=== PATIENT | male | born 1960 | race Caucasian/White ===

== ENCOUNTER 2025-02-18 06:41 | Inpatient (IN) | payer MEDICAID, OTHER ==
[~2025-02-18] VITALS: Ht 182.9 cm; Wt 84.6 kg
--- NOTE | 2025-02-18 06:47 | ECG ---
[facility] Test Date: 2025-02-18 Test Time: 06:42:23 Pat Name: SHELLY SAAVEDRA Department: ED Room: 0289T Gender: M Saas Architect: [email or web address] : 1960 Requested By: EMERGENCY EMERGENCY Order Number: [id number] Reading MD: Dontae Rico Measurements Intervals [place] Rate: 80 P: 70 IA: 135 QRS: -80 QRSD: 87 T: 74 QT: 363 QTc: 419 Interpretive Statements Sinus rhythm Left anterior fascicular block Abnormal R-wave progression, late transition Nonspecific T abnrm, anterolateral leads Electronically Signed On 02-19-2025 17:04:22 PST by Dontae Rico Please click the below link to view image of tracing.
--- NOTE | 2025-02-18 06:57 | ED.PDOC ---
SOB-HPI HPI Comments This is a 64 year old male BIBA presenting to the ED with chief complaint of SOB. Patient reports that he has been experiencing worsening SOB with associated wheezing for the past 2 days. EMS relays patient was given a DuoNeb breathing treatment en route due to having an O2 saturation of 88%. EMS notes patient has history of COPD. Patient denies any chest pain, cough, dizziness, fever, or chills. Time Seen by MD: 06:55 Reviewed notes: Nurses Notes, Sales Rep Notes, Medications, Allergies Information Source: Patient, Emergency Med Personnel Mode of Arrival: EMS Severity: Moderate Timing: Days Duration: Since onset Context: At Rest PE Risk Factors: None History of: COPD Prehospital treatment: Breathing Tx Modifying Factors: Nothing Past Medical History PAST MEDICAL HISTORY: COPD Surgical History: Denies all surgeries Family History Family History: Reviewed,noncontributory to illness Social History Smoker: Cigarettes Alcohol: Denies ETOH Use Drugs: Marijuana Lives In: Homeless Constitutional: denies: chills, diaphoresis, fatigue, fever, malaise, sweats, weakness, others EENTM: denies: blurred vision, double vision, ear bleeding, ear discharge, ear drainage, ear pain, ear ringing, eye pain, eye redness, hearing loss, mouth pain, mouth swelling, nasal discharge, nose bleeding, nose congestion, nose pain, photophobia, tearing, throat pain, throat swelling, voice changes, others Respiratory: reports: shortness of breath, wheezing; denies: cough, hemoptysis, orthopnea, SOB at rest, SOB with excertion, stridor, others Cardiovascular: denies: chest pain, dizzy spells, diaphoresis, Dyspnea on exertion, edema, irregular heart beat, left arm pain, lightheadedness, palpitations, PND, syncope, others Gastrointestinal: denies: abdomen distended, abdominal pain, blood streaked bowels, constipated, diarrhea, dysphagia, difficulty swallowing, hematemesis, melena, nausea, poor appetite, poor fluid intake, rectal bleeding, rectal pain, vomiting, others Genitourinary: denies: burning, dysuria, flank pain, frequency, hematuria, incontinence, penile discharge, penile sore, pain, testicle pain, testicle swelling, urgency, others Neurological: denies: dizziness, fainting, headache, left sided numbness, left sided weakness, numbness, paresthesia, pre-existing deficit, right sided numbness, right sided weakness, seizure, speech problems, tingling, tremors, weakness, others Musculoskeletal: denies: back pain, gout, joint pain, joint swelling, muscle pain, muscle stiffness, neck pain, others Integumetry: denies: bruises, change in color, change in hair/nails, dryness, laceration, lesions, lumps, rash, wounds, others Allergic/Immunocompromised: denies: Difficulty Healing, Frequent Infections, Hives, Itching, others Hematologic/Lymphatic: denies: anemia, blood clots, easy bleeding, easy bruising, swollen glands, others Endocrine: denies: excessive hunger, excessive sweating, excessive thirst, excessive urination, flushing, intolerance to cold, intolerance to heat, unexplained weight gain, unexplained weight loss, others Psychiatric: denies: anxiety, bipolar disorder, depression, hopeless, panic disorder, schizophrenia, sleepless, suicidal, others All Other Systems: Reviewed and Negative Physical Exam General Appearance: Moderate Distress, Normal HEENT: Normal ENT Inspection, Pharynx Normal, TMs Normal Neck: Full Range of Motion, Non-Tender, Normal, Normal Inspection Respiratory: Chest Non-Tender, No Accessory Muscle Use, Other (Coarse breath sounds) Cardiovascular: No Edema, No JVD, No Murmur, No Gallop, Normal Peripheral Pulses, Regular Rate/Rhythm Breast Exam: Deferred Gastrointestinal: No Organomegaly, Non Tender, No Pulsatile Mass, Normal Bowel Sounds, Soft Genitalia: Deferred Pelvic: Deferred Rectal: Deferred Extremities: No calf tenderness, Normal capillary refill, Normal inspection, Normal range of motion, Non-tender, No pedal edema Musculoskeletal : Apperance: Normal Neurologic: Alert, hr internship II-XII nml as Tested, No Motor Deficits, Normal Affect, Normal Mood, No Sensory Deficits Cerebellar Function: NOT DONE Reflexes: NOT DONE Skin: Dry, Normal Color, Warm Peripheral Pulses: 3+ Radial (R), 3+ Radial (L) Lymphatic: No Adenopathy Was a procedure done? Was a procedure done?: No Differential Dx Differential Diagnosis: Anxiety, Asthma, Bronchitis X-Ray, Labs, Meds, VS Vital Signs Date Time Temp Pulse Resp B/P (MAP) Pulse Ox O2 Delivery O2 Flow Rate FiO2 02/18/25 06:57 98.2 79 20 137/82 98 98.2 02/18/25 06:45 80 Lab Test 02/18/25 07:24 Range/Units White Blood Count 12.0 H 4.4-10.8 10^3/uL Red Blood Count 5.08 4.5-5.90 10^6/uL Hemoglobin 15.7 13.5-17.5 g/dL Hematocrit 46.8 41.0-53.0 % Mean Corpuscular Volume 92.2 80.0-100.0 fL Mean Corpuscular Hemoglobin 31.0 28.0-32.0 pg Mean Corpuscular Hemoglobin Concent 33.6 32.0-36.0 g/dL Red Cell Distribution Width 13.6 11.8-14.3 % Platelet Count 300 140-450 10^3/uL Mean Platelet Volume 8.2 6.9-10.8 fL Neutrophils (%) (Auto) 76.1 37.0-80.0 % Lymphocytes (%) (Auto) 12.6 10.0-50.0 % Monocytes (%) (Auto) 8.3 0.0-12.0 % Eosinophils (%) (Auto) 2.3 0.0-7.0 % Basophils (%) (Auto) 0.7 0.0-2.0 % Neutrophils # (Auto) 9.1 H 1.6-8.6 10 ^3/uL Lymphocytes # (Auto) 1.5 0.4-5.4 10 ^3/uL Monocytes # (Auto) 1.0 0-1.3 10 ^3/uL Eosinophils # (Auto) 0.3 0-0.8 10 ^3/uL Basophils # (Auto) 0.1 0-0.2 10 ^3/uL Nucleated Red Blood Cells 0.0 % Sodium Level 143 136-145 mmol/L Potassium Level 3.8 3.5-5.1 mmol/L Chloride Level 107 98-107 mmol/L Carbon Dioxide Level 28 20-31 mmol/L Anion Gap 8 5-15 Blood Urea Nitrogen 9 9-23 mg/dL Creatinine 0.95 0.700-1.30 mg/dL Glomerular Filtration Rate Calc 89 >90 mL/min BUN/Creatinine Ratio 9.5 L 10.0-20.0 Serum Glucose 116 H 74-106 mg/dL Calcium Level 9.3 8.7-10.4 mg/dL Troponin I High Sensitivity 4 </=54 ng/L Current Medications Medications (Trade) Dose Ordered Sig/Rudi Route Start Time Stop Time Status Last Admin Methylprednisolone Sodium Succinate (Solu Medrol) 125 mg ONCE ONCE IV 02/18/25 07:15 02/18/25 07:16 DC 02/18/25 07:47 Ceftriaxone Sodium 50 ml @ 100 mls/hr ONCE ONCE IV 02/18/25 07:15 02/18/25 07:44 DC 02/18/25 07:47 Patient alert. Came in because of shortness a breath. Possible flu. Vitals stable. Establish intravenous access. Was given Rocephin. Was given azithromycin. Explained to the patient. Continue monitoring. [place] [id number] Ph: [phone] DIAGNOSTIC IMAGING Diagnostic Imaging Report : [id number] Signed PATIENT: SHELLY SAAVEDRA ACCT: [id number] UNIT: [id number] : 1960 LOC: ER ROOM / BED: / AGE / SEX: 64 / M ADM STATUS: REG ER SERVICE 3 ORDERING PHYSICIAN: BRO BATISTA MD PROCEDURE(s): CXRP - CHEST PORTABLE REASON: sob ORDER NUMBER(s): [id number], ACCESSION NUMBER(s): [id number] INDICATION: sob TECHNIQUE: Frontal view of the chest. COMPARISON: None FINDINGS: . The heart and mediastinal contours are grossly unremarkable. There is no evidence of pleural disease. The lungs are clear. The bony structures of the chest are intact without fracture. IMPRESSION: 1. No evidence of acute disease. ATED BY: WU COLLADO MD DICTATED DATE/TIME: 02/18/25745 SIGNED BY: WU COLLADO MD SIGNED DATE/TIME: 02/18/25745 CC: Time of 1ST Reevaluation: 07:55 Reevaluation 1ST: Unchanged Patient Education/Counseling: Diagnosis, Treatment Family Education/Counseling: No Family Present SEPSIS Sepsis Screen Physician Orders Chest Portable (02/18/25 07:04) Urinalysis (02/18/25 07:04) Azithromycin 500mg/250ml (Zithromax 500m (02/18/25 07:15) Rapid Influenza A&B (02/18/25 07:04) Covid19 Antigen Kelly (02/18/25 ) Vital Signs Date Time Temp Pulse Resp B/P (MAP) Pulse Ox O2 Delivery O2 Flow Rate FiO2 02/18/25 06:57 98.2 79 20 137/82 98 98.2 02/18/25 06:45 80 Laboratory Tests Test 02/18/25 07:24 White Blood Count 12.0 10^3/uL (4.4-10.8) H Medications Medications Dose Ordered Sig/Rudi Route Start Time Stop Time Status Last Admin Dose Admin Ceftriaxone Sodium 50 ml @ 100 mls/hr ONCE ONCE IV 02/18/25 07:15 02/18/25 07:44 DC 02/18/25 07:47 Methylprednisolone Sodium Succinate 125 mg ONCE ONCE IV 02/18/25 07:15 02/18/25 07:16 DC 02/18/25 07:47 Departure 1 Departure Time of Disposition: 07:07 Impression: Primary Impression: Pneumonitis Disposition: 09 ADMITTED INPATIENT Admit to: Med Surg Condition: Guarded Critical Care Note Critical Care Time?: No Stability Stability form required: No Heart Score Heart Score: Heart Score Response (Comments) Value History N/A 0 EKG N/A 0 Age N/A 0 Risk Factors N/A 0 Troponin N/A 0 Total 0 I personally scribed for BRO BATISTA MD ([email or web address]) on 02/18/25 at 06:57. Electronically submitted by Beau Horan ([email or web address]). I personally scribed for BRO BATISTA MD ([email or web address]) on 02/18/25 at 07:58. Electronically submitted by Beau Horan ([email or web address]). BRO BATISTA MD Feb 18, 2025 06:57
[2025-02-18 07:36] LABS: Chloride 107 mmol/L (98-107); Hematocrit 46.8 % (41.0-53.0); Hemoglobin 15.7 g/dL (13.5-17.5); Mean Corpuscular Hemoglobin 31.0 pg (28.0-32.0); Mean Corpuscular Volume 92.2 fL (80.0-100.0); Nucleated Red Blood Cells % 0.0 %; Potassium 3.8 mmol/L (3.5-5.1); Sodium 143 mmol/L (136-145)
[2025-02-18 07:37] LABS: Anion Gap 8 (5-15); Calcium 9.3 mg/dL (8.7-10.4); Carbon Dioxide 28 mmol/L (20-31)
[2025-02-18 07:42] LABS: BUN/Creatinine Ratio 9.5 (10.0-20.0); Blood Urea Nitrogen 9 mg/dL (9-23)
[2025-02-18 07:46] LABS: Glucose 116 mg/dL (74-106)
[2025-02-18] MEDS: methylPREDNISolone SOD SUCC 125 MG/2 ML VL IV ONE (07:47)
--- NOTE | 2025-02-18 07:48 | DVH ---
INDICATION: sob TECHNIQUE: Frontal view of the chest. COMPARISON: None FINDINGS: . The heart and mediastinal contours are grossly unremarkable. There is no evidence of pleural disease. The lungs are clear. The bony structures of the chest are intact without fracture. IMPRESSION: 1. No evidence of acute disease.
[2025-02-18 08:16] VITALS: PULSE 76; RESP 20; O2SAT 92
[2025-02-18] MEDS: AZITHROMYCIN 500MG/250ML 250 ML IV ONE (08:24)
[2025-02-18 09:41] LABS: Urine Protein, UAD TRACE (Negative)
[2025-02-18 09:49] LABS: Urine Budding Yeast None seen /hpf (None Seen)
[2025-02-18 10:02] LABS: COVID19 ANTIGEN SOFIA FIA NEGATIVE (NEGATIVE)
[2025-02-18] MEDS ORDERED: ONDANSETRON HCL 4 MG/2 ML VIAL IV PRN (10:15)
[2025-02-18] MEDS ORDERED: NITROGLYCERIN 0.4 MG SL TAB SL PRN (10:15)
[2025-02-18] MEDS ORDERED: DOCUSATE SOD 100 MG CAP PO PRN (10:15)
[2025-02-18] MEDS ORDERED: ACETAMINOPHEN 325 MG TAB PO PRN (10:15)
[2025-02-18] MEDS ORDERED: HYDROcodone-ACET 5/325MG TAB PO PRN (10:15)
[2025-02-18] MEDS ORDERED: MORPHINE SULFATE INJ 2 MG/ml SYRG IV PRN (10:15)
--- NOTE | 2025-02-18 10:15 | DVHHP2 ---
History of Present Illness Reason for Visit: COPD with acute exacerbation History of Present Illness The patient is a 64-year-old male homeless with past medical history of COPD who presented to [facility] ED with complaint of shortness of breaths. Patient reports that he has been experiencing difficulty breathing associated with wheezing for the past 2 days. Patient was seen and evaluated in the ED, laboratory data shows WBC 12.0, platelets 300, sodium 143, potassium 3.8, BUN 9, creatinine 0.95, GFR 89, glucose 116, calcium 9.3, troponin 4, blood pressure 126/80, heart rate 83, temperature 98.0 F, O2 saturation 95% on oxygen. Chest x-ray show no evidence of acute disease. Patient was given breathing treatment, please see medication orders section in the computer. On my assessment, patient denied chest pain, no headache, dizziness, diaphoresis, currently on oxygen, no diarrhea, nausea, vomiting, fever, no chills. Patient was admitted for further evaluation and medical management. Past Medical History COPD Past Surgical History Denies all surgeries Family History Reviewed, noncontributory to the management of this case. Past Social History The patient is homeless, smokes cigarettes, uses marijuana, denies alcohol use. Review of Systems Constitutional: Yes: Weakness; No: Fever, Chills, Sweats, Malaise, Other Eyes: No: Pain, Vision change, Conjunctivae inflammation, Eyelid inflammation, Other, Redness ENT: No: Ear pain, Ear discharge, Nose pain, Nose discharge, Nose congestion, Mouth pain, Mouth swelling, Throat pain, Throat swelling, Other Respiratory: Cough, Shortness of breath, Wheezing, Other (SOB at rest); No: Dry, SOB with excertion, Hemoptysis, Pleuritic Pain, Sputum, Wheezing Cardiovascular: No: Chest Pain, Palpitations, Orthopnea, Paroxysmal Noc. Dyspnea, Edema, Lt Headedness, Other Gastrointestinal: No: Nausea, Vomiting, Abdominal Pain, Diarrhea, Constipation, Melena, Hematochezia, Other Genitourinary: No Dysuria, No Frequency, No Incontinence, No Hematuria, No Retention, No Other Musculoskeletal: No: other, neck pain, shoulder pain, arm pain, back pain, hand pain, leg pain, foot pain Skin: No: Rash, Lesions, Jaundice, Bruising, Other Neurological: No: Weakness, Numbness, Incoordination, Change in speech, Confusion, Seizures, Other Allergies: Coded Allergies: No Known Drug Allergy (Unverified Allergy, Unknown, 02/18/25) Exam Vital Signs Vital Signs Date Time Temp Pulse Resp B/P (MAP) Pulse Ox O2 Delivery O2 Flow Rate FiO2 02/18/25 10:00 83 18 126/80 (95) 85 02/18/25 08:16 Nasal Cannula* 4 36 02/18/25 08:00 98.0 98.0 General Appearance: Alert, Oriented X3, Cooperative, No acute distress HEENT: Atraumatic, PERRLA, EOMI, Mucous membr. moist/pink Respiratory: Normal air movement, Other (Diminished breath sounds) Cardiovascular: Regular rate, Normal S1, Normal S2, No murmurs Abdominal: Normal bowel sounds, Soft, No tenderness, No hepatospenomegaly, No masses Extremities: No clubbing, No edema, Normal pulses, No tenderness/swelling Skin: No rashes, No significant lesion Neuro: Normal speech, Normal tone, Sensation intact, Cranial nerves 3-12 NL, Reflexes 2+, Other (Generalized weakness) Psych/Mental Status: Mental status NL, Mood NL Labs/Xrays Labs Test 02/18/25 08:30 02/18/25 07:24 Range/Units Urine Color Yellow Yellow Urine Clarity Clear Clear Urine pH 5.5 5.0-9.0 Urine Specific [place] 1.029 1.001-1.035 Urine Protein Trace H Negative Urine Ketones Negative Negative Urine Blood Negative Negative /uL Urine Nitrite Negative Negative Urine Bilirubin Negative Negative Urine Urobilinogen Normal Negative mg/dL Urine Leukocyte Esterase Trace Negative /uL Urine RBC 11 0 - 3 /hpf Urine Microscopic WBC 18 H 0-3 /HPF Urine Squamous Epithelial Cells Few <5 /hpf Urine Calcium Oxalate Crystals Many None Seen Urine Bacteria None seen None Seen /hpf Urine Hyaline Casts 0 0 - 2 /lpf Urine Mucus Few None Seen Urine Yeast (Budding) None seen None Seen /hpf Urine Glucose Normal Normal mg/dL Influenza Type A Antigen Negative Negative Influenza Type B Antigen Negative Negative SARS-CoV-2 Antigen (Rapid) Negative NEGATIVE White Blood Count 12.0 H 4.4-10.8 10^3/uL Red Blood Count 5.08 4.5-5.90 10^6/uL Hemoglobin 15.7 13.5-17.5 g/dL Hematocrit 46.8 41.0-53.0 % Mean Corpuscular Volume 92.2 80.0-100.0 fL Mean Corpuscular Hemoglobin 31.0 28.0-32.0 pg Mean Corpuscular Hemoglobin Concent 33.6 32.0-36.0 g/dL Red Cell Distribution Width 13.6 11.8-14.3 % Platelet Count 300 140-450 10^3/uL Mean Platelet Volume 8.2 6.9-10.8 fL Neutrophils (%) (Auto) 76.1 37.0-80.0 % Lymphocytes (%) (Auto) 12.6 10.0-50.0 % Monocytes (%) (Auto) 8.3 0.0-12.0 % Eosinophils (%) (Auto) 2.3 0.0-7.0 % Basophils (%) (Auto) 0.7 0.0-2.0 % Neutrophils # (Auto) 9.1 H 1.6-8.6 10 ^3/uL Lymphocytes # (Auto) 1.5 0.4-5.4 10 ^3/uL Monocytes # (Auto) 1.0 0-1.3 10 ^3/uL Eosinophils # (Auto) 0.3 0-0.8 10 ^3/uL Basophils # (Auto) 0.1 0-0.2 10 ^3/uL Nucleated Red Blood Cells 0.0 % Sodium Level 143 136-145 mmol/L Potassium Level 3.8 3.5-5.1 mmol/L Chloride Level 107 98-107 mmol/L Carbon Dioxide Level 28 20-31 mmol/L Anion Gap 8 5-15 Blood Urea Nitrogen 9 9-23 mg/dL Creatinine 0.95 0.700-1.30 mg/dL Glomerular Filtration Rate Calc 89 >90 mL/min BUN/Creatinine Ratio 9.5 L 10.0-20.0 Serum Glucose 116 H 74-106 mg/dL Calcium Level 9.3 8.7-10.4 mg/dL Troponin I High Sensitivity 4 </=54 ng/L PATIENT: SHELLY SAAVEDRA ACCT: [id number] UNIT: [id number] : 1960 LOC: ER ROOM / BED: / AGE / SEX: 64 / M ADM STATUS: REG ER SERVICE 0704 ORDERING PHYSICIAN: BRO BATISTA MD PROCEDURE(s): CXRP - CHEST PORTABLE REASON: sob ORDER NUMBER(s): [id number], ACCESSION NUMBER(s): [id number] INDICATION: sob TECHNIQUE: Frontal view of the chest. COMPARISON: None FINDINGS: The heart and mediastinal contours are grossly unremarkable. There is no evidence of pleural disease. The lungs are clear. The bony structures of the chest are intact without fracture. IMPRESSION: 1. No evidence of acute disease. SEPSIS Sepsis Screen Date sepsis recognized/suspect: Feb 18, 2025 Time Sepsis recognized/suspect: 818 Recent Procedure: No On Antibiotic Therapy: No Respiratory Rate >20: No Heart Rate >90: No Temp<36 C (96.8 F) or >38.3 C: No SBP <90 or MAP <65 mmHG: No New Acute Mental Status Change: No Is the patient on CPAP, BIPAP,: No Physician Orders Chest Portable (02/18/25 07:04) Methylprednisolone Sod Succ (Solu Medrol (02/18/25 22:00) Famotidine Injection (Pepcid Injection) (02/19/25 10:00) Ceftriaxone Ivpb Rocephin (02/19/25 09:00) Admit (02/18/25 10:10) Allergies (02/18/25 10:10) Code Status (02/18/25 10:10) Sodium Chloride Lock (Saline Lock Ns) (02/18/25 14:00) Oxygen Per Hour (02/18/25 10:10) Hydrocodone-Acet 5/325mg Tab ([place] 5/32 (02/18/25 10:15) Ondansetron Hcl (Zofran) (02/18/25 10:15) Docusate Sodium Capsule (Colace Capsule) (02/18/25 10:15) Complete Blood Count (02/19/25 04:00) Comprehensive Metabolic Panel (02/19/25 04:00) Cardiac Diet-2gna,Lofat,Lochol (02/18/25 Lunch) Condition: Serious (02/18/25 10:10) Acetaminophen Tablet (Tylenol Tablet) (02/18/25 10:15) Bedrest With Bathroom Privileg (02/18/25 10:10) Sequential Compression Device (02/18/25 ) Nitroglycerin Sublingual (Ntrostat Subli (02/18/25 10:15) Morphine Sulfate Injection (02/18/25 10:15) Stat Ekg For Chest Pain (02/18/25 10:10) Notify Of Changes From Base (02/18/25 10:10) Finance Associate For 24 Hours (02/18/25 10:10) Emergency Dysrhythmia Protocol (02/18/25 10:10) Rhythm Strips Once Every Shift (02/18/25 10:10) Oxygen By Nasal Cannula (02/18/25 10:10) Vital Signs Date Time Temp Pulse Resp B/P (MAP) Pulse Ox O2 Delivery O2 Flow Rate FiO2 02/18/25 10:00 83 18 126/80 (95) 85 02/18/25 08:16 76 20 92 Nasal Cannula* 4 36 02/18/25 08:00 98.0 72 19 126/81 (96) 95 98.0 02/18/25 08:00 73 02/18/25 07:04 98.6 74 20 132/86 (101) 84 98.6 02/18/25 06:57 98.2 79 20 137/82 98 98.2 02/18/25 06:45 80 Laboratory Tests Test 02/18/25 07:24 White Blood Count 12.0 10^3/uL (4.4-10.8) H Medications Medications Dose Ordered Sig/Rudi Route Start Time Stop Time Status Last Admin Dose Admin Azithromycin 250 ml @ 125 mls/hr ONCE ONCE IV 02/18/25 07:15 02/18/25 09:14 DC 02/18/25 08:24 125 MLS/HR Ceftriaxone Sodium 50 ml @ 100 mls/hr ONCE ONCE IV 02/18/25 07:15 02/18/25 07:44 DC 02/18/25 07:47 100 MLS/HR Methylprednisolone Sodium Succinate 125 mg ONCE ONCE IV 02/18/25 07:15 02/18/25 07:16 DC 02/18/25 07:47 125 MG Assessment/Plan Assessment/Plan COPD with acute exacerbation Leukocytosis, unspecified Generalized weakness Plan 1. Admit to telemetry unit 2. Breathing treatment 3. Pain control management 4. IV antibiotic management 5. Management of fluids and electrolytes 6. Consultation for hospitalist/social service 7. Diagnostic test chest x-ray 8. DVT prophylaxis-on SCDs 9. Repeat labs CBC, CMP in a.m. 10. Home medication reviewed and reconciled 11. Continue with current medical management 12. Treatment plan discussed with patient and RN. Patient verbalized understanding. Plan discussed with: Patient, Other (RN) My Orders Orders - RAS STARK DNP Procedure Category Date Status Time Methylprednisolone PHA 02/18/25 Transmitted Sod Succ (Solu Medrol 22:00 Famotidine Injection PHA 02/19/25 Transmitted (Pepcid Injection) 10:00 Ceftriaxone Ivpb PHA 02/19/25 Transmitted Rocephin 09:00 Admit ADMIT 02/18/25 Transmitted 10:10 Allergies CRISTHIAN 02/18/25 Transmitted 10:10 Code Status CODE 02/18/25 Transmitted 10:10 Sodium Chloride Lock PHA 02/18/25 Transmitted (Saline Lock Ns) 14:00 Oxygen Per Hour RT 02/18/25 Transmitted 10:10 Hydrocodone-Acet PHA 02/18/25 Transmitted 5/325mg Tab ([place] 10:15 Ondansetron Hcl PHA 02/18/25 Transmitted (Zofran) 10:15 Docusate Sodium PHA 02/18/25 Transmitted Capsule (Colace 10:15 Complete Blood Count LAB 02/19/25 Verified 04:00 Comprehensive LAB 02/19/25 Verified Metabolic Panel 04:00 Cardiac DIET 02/18/25 Transmitted Diet-2gna,Lofat,Lochol Lunch Condition: Serious CRISTHIAN 02/18/25 Transmitted 10:10 Acetaminophen Tablet PHA 02/18/25 Transmitted (Tylenol Tablet) 10:15 Bedrest With Bathroom CRISTHIAN 02/18/25 Transmitted Privileg 10:10 Sequential [facility] 02/18/25 Transmitted Compression Device Nitroglycerin [facility] 02/18/25 Transmitted Sublingual (Ntrostat 10:15 Morphine Sulfate PHA 02/18/25 Transmitted Injection 10:15 Stat Ekg For Chest [facility] 02/18/25 Transmitted Pain 10:10 Notify Md Of Changes [facility] 02/18/25 Transmitted From Base 10:10 Finance Associate For [facility] 02/18/25 Transmitted 24 Hours 10:10 Emergency Dysrhythmia [facility] 02/18/25 Transmitted Protocol 10:10 Rhythm Strips Once [facility] 02/18/25 Transmitted Every Shift 10:10 Oxygen By Nasal RT 02/18/25 Transmitted Cannula 10:10 Problem List: (1) COPD with acute exacerbation (2) Leukocytosis, unspecified (3) Generalized weakness Date of Service: Feb 18, 2025 Billing Provider: RAS STARK DNP Common Visit Codes: [id number] INP/OBS CARE (HIGH) RAS STARK DNP Feb 18, 2025 10:15
[2025-02-18 11:11] VITALS: O2SAT 94
[2025-02-18 11:56] VITALS: BP 126/80; PULSE 83; RESP 18; TEMP 98; O2SAT 94
[2025-02-18 13:31] VITALS: PULSE 77; PULSE 87; RESP 18; O2SAT 90; O2SAT 94
[2025-02-18] MEDS: ALBUTEROL SULF 2.5 MG/0.5ML(0.5%) NEB SOLN NEB PRN (13:31)
[2025-02-18] MEDS: IPRATROPIUM BROM 0.5 MG/2.5ML INH SOL NEB PRN (13:31)
[2025-02-18] MEDS: SODIUM CHLOR 0.9% PF (SALINE LOCK) 10ML VIAL/SYR IV SCH (14:08)
[2025-02-18] MEDS: methylPREDNISolone SOD SUCC 40 MG/ML VL IV SCH (14:30)
[2025-02-18 21:00] VITALS: BP 141/86; PULSE 96; RESP 19; TEMP 98.6; O2SAT 90
[2025-02-18] MEDS ORDERED: methylPREDNISolone SOD SUCC 40 MG/ML VL IV SCH (22:00)
[2025-02-18 22:04] VITALS: BP 141/86; PULSE 92; PULSE 96; RESP 18; RESP 19; TEMP 98.6; O2SAT 90; O2SAT 93
[2025-02-18] MEDS: FAMOTIDINE (10MG/ML) 2ML VL IV SCH (22:30)
[2025-02-19] VITALS (12 sets, daily range): BP systolic 117–140; BP diastolic 72–85; PULSE 66–93; RESP 18–20; TEMP 98–98.5; O2SAT 90–97
[2025-02-19 05:43] LABS: Hematocrit 49.5 % (41.0-53.0); Hemoglobin 16.4 g/dL (13.5-17.5); Mean Corpuscular Hemoglobin 30.7 pg (28.0-32.0); Mean Corpuscular Volume 92.8 fL (80.0-100.0); Nucleated Red Blood Cells % 0.0 %
[2025-02-19 06:01] LABS: Alanine Aminotransferase 12 U/L (7-40); Albumin 4.2 g/dL (3.2-4.8); Alkaline Phosphatase 90 U/L (46-116); Anion Gap 8 (5-15); BUN/Creatinine Ratio 13.9 (10.0-20.0); Blood Urea Nitrogen 14 mg/dL (9-23); Calcium 9.7 mg/dL (8.7-10.4); Carbon Dioxide 31 mmol/L (20-31); Chloride 103 mmol/L (98-107); Potassium 4.9 mmol/L (3.5-5.1); Sodium 142 mmol/L (136-145); Total Protein 7.3 g/dL (5.7-8.2)
[2025-02-19 06:03] LABS: Bilirubin, Total 0.3 mg/dL (0.2-1.0); Glucose 130 mg/dL (74-106)
[2025-02-19] MEDS ORDERED: FAMOTIDINE (10MG/ML) 2ML VL IV SCH (10:00)
[2025-02-19] MEDS: AZITHROMYCIN 500MG/250ML 250 ML IV SCH (14:11)
[2025-02-19] MEDS: ALBUTEROL SULF 2.5 MG/0.5ML(0.5%) NEB SOLN NEB SCH (14:50)
[2025-02-19] MEDS: IPRATROPIUM BROM 0.5 MG/2.5ML INH SOL NEB SCH (14:50)
--- NOTE | 2025-02-19 17:39 | DVHPN2 ---
Reviewed: H&P Changes from previous H/P or p: No Changes General: Per HPI Eyes: No Pain, No Vision change, No Conjunctivae inflammation, No Eyelid inflammation, No Other, No Redness ENT: No Ear pain, No Ear discharge, No Nose pain, No Nose discharge, No Nose congestion, No Mouth pain, No Mouth swelling, No Throat pain, No Throat swelling, No Other Cardiovascular: No Chest Pain, No Palpitations, No Orthopnea, No Paroxysmal Noc. Dyspnea, No Edema, No Lt Headedness, No Other Respiratory: Cough; No Dry; Shortness of breath; No SOB with excertion; W heezing; No Hemoptysis, No Pleuritic Pain, No Sputum; Other (SOB at rest) Gastrointestinal: No Nausea, No Vomiting, No Abdominal Pain, No Diarrhea, No Constipation, No Melena, No Hematochezia, No Other Genitourinary: No Dysuria, No Frequency, No Incontinence, No Hematuria, No Retention, No Other Musculoskeletal: No other, No neck pain, No shoulder pain, No arm pain, No back pain, No hand pain, No leg pain, No foot pain Skin: No Rash, No Lesions, No Jaundice, No Bruising, No Other Objective Vitals Vital Signs Date Time Temp Pulse Resp B/P (MAP) Pulse Ox O2 Delivery O2 Flow Rate FiO2 02/19/25 17:00 98.5 72 20 128/83 (98) 93 98.5 02/19/25 08:00 Nasal Cannula* 3 32 Intake/Output Intake and Output 02/19/25 07:00 Intake Total 550 ml Balance 550 ml Intake Oral 250 ml IV Total 300 ml Exam GEN: Healthy appearing, well-developed, NAD. HEENT: NC/AT; MMM. CV: RRR, no m/r/g. LUNGS: Diffuse wheezing in all lung serrano, distant breath sounds. ABD: Soft, NT/ND, NBS, no masses or organomegaly. EXT: skin Warm, well perfused. no rashes. No clubbing, cyanosis, or edema. NEURO: Ambulating with no limitations. No focal deficits. Medications Current Medications Medications Dose Ordered Sig/Rudi Route Start Time Stop Time Status Last Admin Dose Admin Ceftriaxone Sodium 50 ml @ 100 mls/hr DAILY@09 IV 02/19/25 09:00 02/19/25 09:23 100 MLS/HR Sodium Chloride 10 ml Q8HR IV 02/18/25 14:00 02/19/25 14:10 10 ML Acetaminophen/ Hydrocodone Bitart 1 tab Q4HP PRN PO 02/18/25 10:15 Ondansetron HCl 4 mg Q4HP PRN IV 02/18/25 10:15 Docusate Sodium 100 mg BIDPRN PRN PO 02/18/25 10:15 Acetaminophen 650 mg Q6HP PRN PO 02/18/25 10:15 Nitroglycerin 0.4 mg Q5MINP PRN SL 02/18/25 10:15 Morphine Sulfate 2 mg Q30M PRN IV 02/18/25 10:15 Methylprednisolone Sodium Succinate 40 mg Q8HR IV 02/18/25 14:00 02/19/25 14:10 40 MG Famotidine 20 mg Q12HR IV 02/18/25 22:00 02/19/25 09:23 20 MG Albuterol 2.5 mg Q4H NEB 02/19/25 14:00 02/19/25 14:50 2.5 MG Ipratropium [place] 0.5 mg Q4H NEB 02/19/25 14:00 02/19/25 14:50 0.5 MG Azithromycin 250 ml @ 125 mls/hr DAILY IV 02/19/25 13:15 02/19/25 14:11 125 MLS/HR Laboratory Results Laboratory Tests 02/19/25 04:53 Chemistry Test 02/19/25 04:53 Albumin 4.2 g/dL (3.2-4.8) Calcium Level 9.7 mg/dL (8.7-10.4) Total Protein 7.3 g/dL (5.7-8.2) LFT Test 02/19/25 04:53 Alanine Aminotransferase (ALT) 12 U/L (7-40) Alkaline Phosphatase 90 U/L (46-116) Aspartate Amino Transferase (AST) 16 U/L (13-40) Total Bilirubin 0.3 mg/dL (0.2-1.0) Urinalysis Test 02/18/25 08:30 Urine Color Yellow (Yellow) Urine Clarity Clear (Clear) Urine pH 5.5 (5.0-9.0) Urine Specific [place] 1.029 (1.001-1.035) Urine Protein Trace (Negative) H Urine Ketones Negative (Negative) Urine Blood Negative /uL (Negative) Urine Nitrite Negative (Negative) Urine Bilirubin Negative (Negative) Urine Urobilinogen Normal mg/dL (Negative) Urine Leukocyte Esterase Trace /uL (Negative) Urine RBC 11 /hpf (0 - 3) Urine Microscopic WBC 18 /HPF (0-3) H Urine Squamous Epithelial Cells Few /hpf (<5) Urine Calcium Oxalate Crystals Many (None Seen) Urine Bacteria None seen /hpf (None Seen) Urine Hyaline Casts 0 /lpf (0 - 2) Urine Mucus Few (None Seen) Urine Yeast (Budding) None seen /hpf (None Seen) Urine Glucose Normal mg/dL (Normal) Labs and/or images reviewed: Labs reviewed by me, Image(s) reviewed by me Assessment/Plan Assessment/Plan 64-year-old male homeless with past medical history of COPD who presented to [facility] ED with complaint of shortness of breaths. Patient reports that he has been experiencing difficulty breathing associated with wheezing for the past 2 days. 02/19: Patient admitted yesterday, appears to be COPD exacerbation and/or with a ammonia. Patient continues to have cough. We will schedule nebulizers q.4, reassess tomorrow to deescalate to q.6 if possible. Continue Solu-Medrol 40 t.i.d.. Patient is still wheezing. We will continue antibiotics, continue ceftriaxone, and azithromycin IV. Continue other home medications. Keep on tele. Full code. Diagnosis: Acute on chronic hypoxic respiratory failure Acute exacerbation of chronic COPD, with pneumonitis Possible pneumonia, community-acquired, Gram-negative/Gram-positive possible Tobacco abuse, current, with dependence Leukocytosis Plan: Ipratropium, albuterol nebulizer q.4h scheduled Ceftriaxone IV 1 g daily, Azithromycin 500 mg daily IV Continue home medications Patient declining nicotine patch Solu-Medrol 40 IV t.i.d. Famotidine Pepcid injection 20 IV b.i.d. Tele Full code Plan discussed with: Patient My Orders Orders - CLEOPATRA CONKLIN MD Procedure Category Date Status Time Albuterol Medneb PHA 02/19/25 In Process (Ventolin Medneb) 14:00 Ipratropium Medneb PHA 02/19/25 In Process (Atrovent Medneb) 14:00 Azithromycin PHA 02/19/25 In Process 500mg/250ml 13:15 Date of Service: Feb 19, 2025 Billing Provider: CLEOPATRA CONKLIN MD Common Visit Codes: [id number] INP/OBS CARE(HIGH) CLEOPATRA CONKLIN MD Feb 19, 2025 17:38
[2025-02-20] VITALS (19 sets, daily range): BP systolic 99–129; BP diastolic 64–89; PULSE 68–97; RESP 16–20; TEMP 98–98.7; O2SAT 88–100
[2025-02-21] VITALS (17 sets, daily range): BP systolic 80–136; BP diastolic 60–87; PULSE 64–86; RESP 16–20; TEMP 97.9–98.6; O2SAT 90–99
--- NOTE | 2025-02-21 11:07 | DVHPN2 ---
Reviewed: Care Plan, H&P Changes from previous H/P or p: No Changes General: Per HPI Eyes: No Pain, No Vision change, No Conjunctivae inflammation, No Eyelid inflammation, No Other, No Redness ENT: No Ear pain, No Ear discharge, No Nose pain, No Nose discharge, No Nose congestion, No Mouth pain, No Mouth swelling, No Throat pain, No Throat swelling, No Other Cardiovascular: No Chest Pain, No Palpitations, No Orthopnea, No Paroxysmal Noc. Dyspnea, No Edema, No Lt Headedness, No Other Respiratory: Cough; No Dry; Shortness of breath; No SOB with excertion; W heezing; No Hemoptysis, No Pleuritic Pain, No Sputum; Other (SOB at rest) Gastrointestinal: No Nausea, No Vomiting, No Abdominal Pain, No Diarrhea, No Constipation, No Melena, No Hematochezia, No Other Genitourinary: No Dysuria, No Frequency, No Incontinence, No Hematuria, No Retention, No Other Musculoskeletal: No other, No neck pain, No shoulder pain, No arm pain, No back pain, No hand pain, No leg pain, No foot pain Skin: No Rash, No Lesions, No Jaundice, No Bruising, No Other Objective Vitals Vital Signs Date Time Temp Pulse Resp B/P (MAP) Pulse Ox O2 Delivery O2 Flow Rate FiO2 02/21/25 10:10 18 122/64 94 0.0 21 02/21/25 09:09 Room Air* 02/21/25 09:00 98.6 70 98.6 Intake/Output Intake and Output 02/21/25 07:00 Intake Total 2095 ml Output Total 1200 ml Balance 895 ml Intake Oral 1795 ml IV Total 300 ml Output Urine Total 1200 ml Medications Current Medications Medications Dose Ordered Sig/Rudi Route Start Time Stop Time Status Last Admin Dose Admin Ceftriaxone Sodium 50 ml @ 100 mls/hr DAILY@09 IV 02/19/25 09:00 02/21/25 09:35 100 MLS/HR Sodium Chloride 10 ml Q8HR IV 02/18/25 14:00 02/21/25 05:17 10 ML Acetaminophen/ Hydrocodone Bitart 1 tab Q4HP PRN PO 02/18/25 10:15 Ondansetron HCl 4 mg Q4HP PRN IV 02/18/25 10:15 Docusate Sodium 100 mg BIDPRN PRN PO 02/18/25 10:15 Acetaminophen 650 mg Q6HP PRN PO 02/18/25 10:15 Nitroglycerin 0.4 mg Q5MINP PRN SL 02/18/25 10:15 Morphine Sulfate 2 mg Q30M PRN IV 02/18/25 10:15 Methylprednisolone Sodium Succinate 40 mg Q8HR IV 02/18/25 14:00 02/21/25 05:17 40 MG Famotidine 20 mg Q12HR IV 02/18/25 22:00 02/21/25 09:35 20 MG Albuterol 2.5 mg Q4H NEB 02/19/25 14:00 02/21/25 02:25 2.5 MG Ipratropium [place] 0.5 mg Q4H NEB 02/19/25 14:00 02/21/25 02:25 0.5 MG Azithromycin 250 ml @ 125 mls/hr DAILY IV 02/19/25 13:15 02/21/25 09:35 125 MLS/HR Laboratory Results Laboratory Tests 02/19/25 04:53 Urinalysis Test 02/18/25 08:30 Urine Color Yellow (Yellow) Urine Clarity Clear (Clear) Urine pH 5.5 (5.0-9.0) Urine Specific [place] 1.029 (1.001-1.035) Urine Protein Trace (Negative) H Urine Ketones Negative (Negative) Urine Blood Negative /uL (Negative) Urine Nitrite Negative (Negative) Urine Bilirubin Negative (Negative) Urine Urobilinogen Normal mg/dL (Negative) Urine Leukocyte Esterase Trace /uL (Negative) Urine RBC 11 /hpf (0 - 3) Urine Microscopic WBC 18 /HPF (0-3) H Urine Squamous Epithelial Cells Few /hpf (<5) Urine Calcium Oxalate Crystals Many (None Seen) Urine Bacteria None seen /hpf (None Seen) Urine Hyaline Casts 0 /lpf (0 - 2) Urine Mucus Few (None Seen) Urine Yeast (Budding) None seen /hpf (None Seen) Urine Glucose Normal mg/dL (Normal) Labs and/or images reviewed: Labs reviewed by me, Image(s) reviewed by me Assessment/Plan Assessment/Plan 64-year-old male homeless with past medical history of COPD who presented to [facility] ED with complaint of shortness of breaths. Patient reports that he has been experiencing difficulty breathing associated with wheezing for the past 2 days. 12/4: Patient admitted yesterday, appears to be COPD exacerbation and/or with a ammonia. Patient continues to have cough. We will schedule nebulizers q.4, reassess tomorrow to deescalate to q.6 if possible. Continue Solu-Medrol 40 t.i.d.. Patient is still wheezing. We will continue antibiotics, continue ceftriaxone, and azithromycin IV. Continue other home medications. Keep on tele. Full code. Diagnosis: Acute on chronic hypoxic respiratory failure Acute exacerbation of chronic COPD, with pneumonitis Possible pneumonia, community-acquired, Gram-negative/Gram-positive possible Tobacco abuse, current, with dependence Leukocytosis Plan: Ipratropium, albuterol nebulizer q.4h scheduled Ceftriaxone IV 1 g daily, Azithromycin 500 mg daily IV Continue home medications Patient declining nicotine patch Solu-Medrol 40 IV t.i.d. Famotidine Pepcid injection 20 IV b.i.d. Tele Full code Plan discussed with: Patient Date of Service: Feb 21, 2025 Billing Provider: ANIA BARNEY DO Common Visit Codes: [id number] INP/OBS CARE(HIGH) ANIA BARNEY DO Feb 21, 2025 11:07
[2025-02-22] VITALS (8 sets, daily range): BP systolic 121–133; BP diastolic 78–81; PULSE 61–70; RESP 16–18; TEMP 97.3–98; O2SAT 90–98
--- NOTE | 2025-02-22 09:54 | DVHPN2 ---
Reviewed: Care Plan, H&P Changes from previous H/P or p: No Changes General: Per HPI Eyes: No Pain, No Vision change, No Conjunctivae inflammation, No Eyelid inflammation, No Other, No Redness ENT: No Ear pain, No Ear discharge, No Nose pain, No Nose discharge, No Nose congestion, No Mouth pain, No Mouth swelling, No Throat pain, No Throat swelling, No Other Cardiovascular: No Chest Pain, No Palpitations, No Orthopnea, No Paroxysmal Noc. Dyspnea, No Edema, No Lt Headedness, No Other Respiratory: Cough; No Dry; Shortness of breath; No SOB with excertion; W heezing; No Hemoptysis, No Pleuritic Pain, No Sputum; Other (SOB at rest) Gastrointestinal: No Nausea, No Vomiting, No Abdominal Pain, No Diarrhea, No Constipation, No Melena, No Hematochezia, No Other Genitourinary: No Dysuria, No Frequency, No Incontinence, No Hematuria, No Retention, No Other Musculoskeletal: No other, No neck pain, No shoulder pain, No arm pain, No back pain, No hand pain, No leg pain, No foot pain Skin: No Rash, No Lesions, No Jaundice, No Bruising, No Other Objective Vitals Vital Signs Date Time Temp Pulse Resp B/P (MAP) Pulse Ox O2 Delivery O2 Flow Rate FiO2 02/22/25 09:25 61 16 98 02/22/25 09:19 Room Air 0.0 02/22/25 09:19 21 02/22/25 01:00 97.3 121/81 (94) 97.3 Intake/Output Intake and Output 02/22/25 07:00 Intake Total 1400 ml Output Total 1800 ml Balance -400 ml Intake Oral 1400 ml Output Urine Total 1800 ml Medications Current Medications Medications Dose Ordered Sig/Rudi Route Start Time Stop Time Status Last Admin Dose Admin Ceftriaxone Sodium 50 ml @ 100 mls/hr DAILY@09 IV 02/19/25 09:00 02/22/25 09:45 100 MLS/HR Sodium Chloride 10 ml Q8HR IV 02/18/25 14:00 02/22/25 06:16 10 ML Acetaminophen/ Hydrocodone Bitart 1 tab Q4HP PRN PO 02/18/25 10:15 Ondansetron HCl 4 mg Q4HP PRN IV 02/18/25 10:15 Docusate Sodium 100 mg BIDPRN PRN PO 02/18/25 10:15 Acetaminophen 650 mg Q6HP PRN PO 02/18/25 10:15 Nitroglycerin 0.4 mg Q5MINP PRN SL 02/18/25 10:15 Morphine Sulfate 2 mg Q30M PRN IV 02/18/25 10:15 Methylprednisolone Sodium Succinate 40 mg Q8HR IV 02/18/25 14:00 02/22/25 06:17 40 MG Famotidine 20 mg Q12HR IV 02/18/25 22:00 02/22/25 09:45 20 MG Albuterol 2.5 mg Q4H NEB 02/19/25 14:00 02/22/25 09:19 2.5 MG Ipratropium [place] 0.5 mg Q4H NEB 02/19/25 14:00 02/22/25 09:19 0.5 MG Azithromycin 250 ml @ 125 mls/hr DAILY IV 02/19/25 13:15 02/21/25 09:35 125 MLS/HR Laboratory Results Laboratory Tests 02/19/25 04:53 Urinalysis Test 02/18/25 08:30 Urine Color Yellow (Yellow) Urine Clarity Clear (Clear) Urine pH 5.5 (5.0-9.0) Urine Specific [place] 1.029 (1.001-1.035) Urine Protein Trace (Negative) H Urine Ketones Negative (Negative) Urine Blood Negative /uL (Negative) Urine Nitrite Negative (Negative) Urine Bilirubin Negative (Negative) Urine Urobilinogen Normal mg/dL (Negative) Urine Leukocyte Esterase Trace /uL (Negative) Urine RBC 11 /hpf (0 - 3) Urine Microscopic WBC 18 /HPF (0-3) H Urine Squamous Epithelial Cells Few /hpf (<5) Urine Calcium Oxalate Crystals Many (None Seen) Urine Bacteria None seen /hpf (None Seen) Urine Hyaline Casts 0 /lpf (0 - 2) Urine Mucus Few (None Seen) Urine Yeast (Budding) None seen /hpf (None Seen) Urine Glucose Normal mg/dL (Normal) Assessment/Plan Assessment/Plan 64-year-old male homeless with past medical history of COPD who presented to [facility] ED with complaint of shortness of breaths. Patient reports that he has been experiencing difficulty breathing associated with wheezing for the past 2 days. 02/19: Patient admitted yesterday, appears to be COPD exacerbation and/or with a ammonia. Patient continues to have cough. We will schedule nebulizers q.4, reassess tomorrow to deescalate to q.6 if possible. Continue Solu-Medrol 40 t.i.d.. Patient is still wheezing. We will continue antibiotics, continue ceftriaxone, and azithromycin IV. Continue other home medications. Keep on tele. Full code. Diagnosis: Acute on chronic hypoxic respiratory failure Acute exacerbation of chronic COPD, with pneumonitis Possible pneumonia, community-acquired, Gram-negative/Gram-positive possible Tobacco abuse, current, with dependence Leukocytosis Plan: Ipratropium, albuterol nebulizer q.4h scheduled Ceftriaxone IV 1 g daily, Azithromycin 500 mg daily IV Continue home medications Patient declining nicotine patch Solu-Medrol 40 IV t.i.d. Famotidine Pepcid injection 20 IV b.i.d. Tele Full code Plan discussed with: Patient Date of Service: Feb 20, 2025 Billing Provider: ANIA BARNEY DO Common Visit Codes: [id number] INP/OBS CARE(HIGH) ANIA BARNEY DO Feb 22, 2025 09:54
[2025-02-22] MEDS ORDERED: AZIT-43 PO (09:55)
--- NOTE | 2025-02-22 14:36 | DVHDS2 ---
Discharge Summary Date of Admission Feb 18, 2025 at 10:10 Date of Discharge: Feb 22, 2025 Labs/Diagnostic Data: Laboratory Results Test 02/19/25 04:53 02/18/25 08:30 02/18/25 07:24 White Blood Count 14.3 10^3/uL (4.4-10.8) Red Blood Count 5.33 10^6/uL (4.5-5.90) Hemoglobin 16.4 g/dL (13.5-17.5) Hematocrit 49.5 % (41.0-53.0) Mean Corpuscular Volume 92.8 fL (80.0-100.0) Mean Corpuscular Hemoglobin 30.7 pg (28.0-32.0) Mean Corpuscular Hemoglobin Concent 33.0 g/dL (32.0-36.0) Red Cell Distribution Width 13.6 % (11.8-14.3) Platelet Count 382 10^3/uL (140-450) Mean Platelet Volume 8.5 fL (6.9-10.8) Neutrophils (%) (Auto) 88.9 % (37.0-80.0) Lymphocytes (%) (Auto) 7.2 % (10.0-50.0) Monocytes (%) (Auto) 3.5 % (0.0-12.0) Eosinophils (%) (Auto) 0.1 % (0.0-7.0) Basophils (%) (Auto) 0.3 % (0.0-2.0) Neutrophils # (Auto) 12.7 10 ^3/uL (1.6-8.6) Lymphocytes # (Auto) 1.0 10 ^3/uL (0.4-5.4) Monocytes # (Auto) 0.5 10 ^3/uL (0-1.3) Eosinophils # (Auto) 0 10 ^3/uL (0-0.8) Basophils # (Auto) 0 10 ^3/uL (0-0.2) Nucleated Red Blood Cells 0.0 % Sodium Level 142 mmol/L (136-145) Potassium Level 4.9 mmol/L (3.5-5.1) Chloride Level 103 mmol/L (98-107) Carbon Dioxide Level 31 mmol/L (20-31) Anion Gap 8 (5-15) Blood Urea Nitrogen 14 mg/dL (9-23) Creatinine 1.01 mg/dL (0.700-1.30) Glomerular Filtration Rate Calc 83 mL/min (>90) BUN/Creatinine Ratio 13.9 (10.0-20.0) Serum Glucose 130 mg/dL (74-106) Calcium Level 9.7 mg/dL (8.7-10.4) Total Bilirubin 0.3 mg/dL (0.2-1.0) Aspartate Amino Transferase (AST) 16 U/L (13-40) Alanine Aminotransferase (ALT) 12 U/L (7-40) Alkaline Phosphatase 90 U/L (46-116) Total Protein 7.3 g/dL (5.7-8.2) Albumin 4.2 g/dL (3.2-4.8) Urine Color Yellow (Yellow) Urine Clarity Clear (Clear) Urine pH 5.5 (5.0-9.0) Urine Specific [place] 1.029 (1.001-1.035) Urine Protein Trace (Negative) Urine Ketones Negative (Negative) Urine Blood Negative /uL (Negative) Urine Nitrite Negative (Negative) Urine Bilirubin Negative (Negative) Urine Urobilinogen Normal mg/dL (Negative) Urine Leukocyte Esterase Trace /uL (Negative) Urine RBC 11 /hpf (0 - 3) Urine Microscopic WBC 18 /HPF (0-3) Urine Squamous Epithelial Cells Few /hpf (<5) Urine Calcium Oxalate Crystals Many (None Seen) Urine Bacteria None seen /hpf (None Seen) Urine Hyaline Casts 0 /lpf (0 - 2) Urine Mucus Few (None Seen) Urine Yeast (Budding) None seen /hpf (None Seen) Urine Glucose Normal mg/dL (Normal) Influenza Type A Antigen Negative (Negative) Influenza Type B Antigen Negative (Negative) SARS-CoV-2 Antigen (Rapid) Negative (NEGATIVE) Troponin I High Sensitivity 4 ng/L (</=54) Other Laboratory Tests 02/19/25 04:53 Brief Hx & Hospital Course: 64-year-old male homeless with past medical history of COPD who presented to [facility] ED with complaint of shortness of breaths. Patient reports that he has been experiencing difficulty breathing associated with wheezing for the past 2 days. 02/19: Patient admitted yesterday, appears to be COPD exacerbation and/or with a ammonia. Patient continues to have cough. We will schedule nebulizers q.4, reassess tomorrow to deescalate to q.6 if possible. Continue Solu-Medrol 40 t.i.d.. Patient is still wheezing. We will continue antibiotics, continue ceftriaxone, and azithromycin IV. Continue other home medications. Keep on tele. Full code. Diagnosis: Acute on chronic hypoxic respiratory failure Acute exacerbation of chronic COPD, with pneumonitis Possible pneumonia, community-acquired, Gram-negative/Gram-positive possible Tobacco abuse, current, with dependence Leukocytosis Plan: Ipratropium, albuterol nebulizer q.4h scheduled Ceftriaxone IV 1 g daily, Azithromycin 500 mg daily IV Continue home medications Patient declining nicotine patch Solu-Medrol 40 IV t.i.d. Famotidine Pepcid injection 20 IV b.i.d. discharged to home Tele Full code Condition at Discharge: Good Final Diagnosis/Problems List COPD WITH EXARCEBATION Discharge Disposition: Home Discharge Instruct/Medications Diet: Cardiac 2g Na,low cholest Activity: No Restrictions, As Tolerated Scheduled Azithromycin (Azithromycin), 250 MG PO DAILY Discharge Statement: "Patient was advised to return to the ER or call 911 if any headaches, dizziness, shortness of breath, chest pain, abdominal pain, bleeding, fevers, or worsening of medical condition. Patient was counseled about treatment plan, medications, possible side effects, patientverbalized understanding. All questions were answered to the best of my ability. This discharge took greater then 30 minutes in planning, reviewing documentation, counseling the patient, and discussing with other team members." ASSESSMENT ASSESSMENT Assessment COPD WITH EXARCEBATION Date of Service: Feb 22, 2025 Billing Provider: ANIA BARNEY DO Common Visit Codes: [id number] DISCH DAY >30min ANIA BARNEY DO Feb 22, 2025 14:36
== END 2025-02-22 12:00 | disposition home or self-care (01) | DRG 133 ==
LOC: EDBD 06:41 → ER 06:41 → OVERFLOW 10:10 → TELE-WESTW 21:19
PROVIDERS: ADMIT Student in an Organized Health Care Education/Training Program; ATTEND Student in an Organized Health Care Education/Training Program
DX: J96.21 Acute and chronic respiratory failure with hypoxia (principal); J15.69 Pneumonia due to other Gram-negative bacteria; J15.9 Unspecified bacterial pneumonia; Z59.00 Homelessness unspecified; J44.0 Chronic obstructive pulmonary disease with (acute) lower respiratory infection; J44.1 Chronic obstructive pulmonary disease with (acute) exacerbation; Z20.822 Contact with and (suspected) exposure to COVID-19; D72.829 Elevated white blood cell count, unspecified; J98.4 Other disorders of lung; F17.210 Nicotine dependence, cigarettes, uncomplicated
CPT/HCPCS: 36415; 71045; 80048; 80053; 81001; 84484; 85025; 87426; 87804; 93005; 94640; 96365; 96375; G0378; J3490